=== PATIENT | female | born 1930 | race Caucasian/White ===

== ENCOUNTER 2016-09-15 08:50 | Outpatient (CLI) | payer MEDICARE, OTHER | END 2016-09-15 08:51 | disposition home or self-care (01) | DX: I10 Essential (primary) hypertension (principal); E78.5 Hyperlipidemia, unspecified; E03.9 Hypothyroidism, unspecified ==

== ENCOUNTER 2016-12-29 14:38 | Outpatient (CLI) | payer MEDICARE, OTHER | END 2016-12-29 23:59 | disposition home or self-care (01) | DX: M25.50 Pain in unspecified joint (principal) ==

== ENCOUNTER 2017-05-10 10:23 | Outpatient (CLI) | payer MEDICARE, OTHER ==
[2017-05-10 13:05] LABS: BASOPHILS % (AUTO) 0.6 %; EOSINOPHILS # (AUTO) 0.1 10^3/uL (0.0-0.7); EOSINOPHILS % (AUTO) 1.8 %; HCT - HEMATOCRIT 37.2 % (37.0-47.0); HGB - HEMOGLOBIN 12.4 g/dL (12.0-16.0); LYMPHOCYTES # (AUTO) 1.5 10^3/uL (1.5-3.5); LYMPHOCYTES % (AUTO) 29.9 %; MEAN CORPUSCULAR HGB CONC 33.4 g/dL (32.0-36.0); MEAN CORPUSCULAR VOLUME 86.7 fL (81.0-99.0); MEAN PLATELET VOLUME 9.9 fL (7.9-10.8); MONOCYTES # (AUTO) 0.4 10^3/uL (0.0-1.0); MONOCYTES % (AUTO) 7.5 %; NEUTROPHILS % (AUTO) 60.2 %; RED BLOOD COUNT 4.29 10^6/uL (4.20-5.40); RED CELL DISTRIBUTION WIDTH 13.5 % (12.0-15.0)
[2017-05-10 13:43] LABS: ALBUMIN/GLOBULIN RATIO 1.5 (1.0-2.2); BILIRUBIN,TOTAL 0.5 mg/dL (0.2-1.0); CALCIUM 9.3 mg/dL (8.5-10.3); CREATININE 0.6 mg/dL (0.4-1.0); POTASSIUM 3.9 mmol/L (3.5-5.0); TOTAL PROTEIN 6.7 g/dL (6.7-8.2)
== END 2017-05-10 10:24 | disposition home or self-care (01) ==
LOC: LAB.WCP 10:23
PROVIDERS: ATTEND Family Medicine
DX: R07.9 Chest pain, unspecified (principal)
CPT/HCPCS: 36415; 80053; 84484; 85025

== ENCOUNTER 2017-05-10 13:18 | Outpatient (CLI) | payer MEDICARE, OTHER ==
--- NOTE | 2017-05-10 14:12 | XRAY Report ---
TWO VIEW CHEST: 05/10/2017 CLINICAL INDICATION: Chest pain. FINDINGS: Frontal and lateral views of the chest are compared to previous films of 05/29/2016. The cardiac silhouette is within normal limits. Minimal left basilar scarring is stable. No new conso lidation, effusion, or pneumothorax is present. Left shoulder replacement appears stable. IMPRESSION: STABLE MINIMAL LEFT BASILAR SCARRING. NO EVIDENCE OF ACUTE CARDIOPULMONARY DISEASE. JOB #: [id number] EXT JOB #:[id number]
== END 2017-05-10 13:19 | disposition home or self-care (01) ==
LOC: DI 13:18
PROVIDERS: ATTEND Family Medicine
DX: R07.9 Chest pain, unspecified (principal)
CPT/HCPCS: 36415; 71020; 80053; 84484; 85025

== ENCOUNTER 2017-05-20 10:50 | Outpatient (CLI) | payer MEDICARE, OTHER ==
--- NOTE | 2017-05-20 14:52 | CARDIAC PROCEDURE NOTE ---
DATE OF SERVICE: 05/20/2017 00:00:00 PRIMARY CARE PHYSICIAN: Vick Mckeon DO PROCEDURE: Pharmacological stress test. PROCEDURE SYMPTOMS: Chest pain. CARDIAC RISK FACTORS: Include age, hypertension and hyperlipidemia. CLINICAL HISTORY: An 87-year-old female without known coronary artery disease. The patient did not take her antihypertensive medication this morning. INITIAL RESTING VITAL SIGNS: Blood pressure 192/86, heart rate 59, height 61 inches, weight 130 pounds, BMI 24.2. PROCEDURE AND FINDINGS: The patient's identity and date verified. Consent signed. Safety stop. Pharmacologic stress testing was performed with Lexiscan at a dose of 0.4 mg over 10 seconds. Maximal blood pressure was 184/86 with a heart rate of 89 beats per minute. The systolic blood pressure lowered to 170 in response to Lexiscan. The patient had symptoms of brief chest pain, dyspnea and headache, that resolved spontaneously. The resting ECG demonstrated normal sinus rhythm with repolarization abnormality. There was no ST segment depression and no ectopy. FINAL IMPRESSION 1. No electrocardiographic signs of ischemia, test incomplete, awaiting myocardial perfusion scan report. 2. Nondiagnostic stress test clinically for angina. 3. No ectopy. JOB #: [id number] EXT JOB #:[id number] [email or web address]
--- NOTE | 2017-05-20 15:49 | Nuclear Medicine Prelim Report ---
Exam: NM Myocardial Perfusion STR/RST IMPRESSION: 1. No scintigraphic evidence of inducible ischemia or infarct. 2. Left ventricular ejection fraction estimated at 79%. [facility] SITE ID: [id number]
--- NOTE | 2017-05-20 15:52 | Nuclear Medicine Report ---
EXAM: NUCLEAR MEDICINE MYOCARDIAL PERFUSION STRESS AND REST EXAM DATE: 05/20/2017 11:55 AM. CLINICAL HISTORY: CHEST PAIN. COMPARISON: None. TECHNIQUE: Patient given 7.4 mCi technetium 99m sestamibi IV for the rest portion of the study. Non-g ated cardiac SPECT scintigraphy performed with multiplanar reformats. After this, patient given 0.4 mg Lexiscan for pharmacologic stress. Given 31.4 mCi technetium 99m sestamibi IV. Cardiac gated SPECT scintigraphy performed with multiplan ar reformats, wall motion analysis, and left ventricular ejection fraction estimation. FINDINGS: There is uniform perfusion activity in the left ventricular myocardium on both stress and rest. No fi xed or reversible stress-related perfusion defects. Wall motion is uniform. Left ventricular ejection fraction estimated at 79%. IMPRESSION: 1. No scintigraphic evidence of inducible ischemia or infarct. 2. Left ventricular ejection fraction estimated at 79%. [facility] Referring Provider Line: [phone] SITE ID: [id number]
[2017-05-26 15:59] VITALS: BP 192/86
== END 2017-05-20 10:51 | disposition home or self-care (01) ==
LOC: DI 10:50
PROVIDERS: ATTEND Family Medicine
DX: R07.9 Chest pain, unspecified (principal)
CPT/HCPCS: 78452; 93017; A9500

== ENCOUNTER 2017-10-21 13:05 | Outpatient (CLI) | payer MEDICARE, OTHER ==
[2017-10-21 19:19] LABS: BILIRUBIN,URINE NEGATIVE (NEGATIVE); GLUCOSE, URINE (UA) NEGATIVE (NEGATIVE); KETONES,URINE (UA) NEGATIVE (NEGATIVE); LEUKOCYTE ESTERASE, URINE LARGE (NEGATIVE); NITRITE,URINE NEGATIVE (NEGATIVE); OCCULT BLOOD,URINE SMALL (NEGATIVE); PH,URINE 6.5 PH (5.0-7.5); PROTEIN,URINE NEGATIVE (NEGATIVE); UROBILINOGEN,URINE 0.2 (NORMAL) E.U./dL (NORMAL)
[2017-10-21 19:33] LABS: CLARITY,URINE HAZY (CLEAR); WBC CLUMPS,URINE PRESENT
[2017-10-21 19:34] LABS: BACTERIA,URINE Few /HPF (None Seen); SQUAMOUS EPITHELIAL CELL,UR MOD Squamous (<= Few)
== END 2017-10-21 13:06 | disposition home or self-care (01) ==
LOC: LAB.WCP 13:05
PROVIDERS: ATTEND Family Medicine
DX: R31.9 Hematuria, unspecified (principal)
CPT/HCPCS: 81001; 87086

== ENCOUNTER 2017-11-16 10:30 | Outpatient (CLI) | payer MEDICARE, OTHER | END 2017-11-16 10:31 | disposition home or self-care (01) | LOC: LAB.WCP 10:30 | PROVIDERS: ATTEND Family Medicine | DX: S81.822A Laceration with foreign body, left lower leg, initial encounter (principal) | CPT/HCPCS: 87070; 87205 ==

== ENCOUNTER 2018-11-04 10:44 | Outpatient (CLI) | payer MEDICARE, OTHER ==
--- NOTE | 2018-11-04 12:57 | XRAY Report ---
Reason: CHEST PX,ATYPICAL Procedure Date: 11/04/2018 Accession Number: [id number] / [id number] Procedure: WCP - Chest 2 View X-Ray CPT Code: 65675 FULL RESULT: EXAM: CHEST RADIOGRAPHY EXAM DATE: 11/04/2018 10:58 AM. CLINICAL HISTORY: Chest pain, atypical. COMPARISON: CHEST 2 VIEW PA/LAT 05/10/2017 1:38 PM. TECHNIQUE: 2 views. FINDINGS: Lungs/Pleura: Linear opacities in the retrocardiac region are mildly more prominent, likely subsegmental atelectasis or scarring. No pleural effusion. No pneumothorax. Normal volumes. Mediastinum: Stable cardiomediastinal silhouette including calcifications of the aortic arch. Central pulmonary arteries are prominent. Other: None. IMPRESSION: Suspect scarring or subsegmental atelectasis in the lingula. [facility]
== END 2018-11-04 10:45 | disposition home or self-care (01) ==
LOC: DI.WCP 10:44
PROVIDERS: ATTEND Family Medicine
DX: R07.89 Other chest pain (principal)
CPT/HCPCS: 71046

== ENCOUNTER 2018-12-14 08:00 | Outpatient (CLI) | payer MEDICARE, OTHER ==
[2018-12-14 13:10] LABS: BASOPHILS # (AUTO) 0.1 10^3/uL (0.0-0.1); BASOPHILS % (AUTO) 1.1 %; EOSINOPHILS # (AUTO) 0.1 10^3/uL (0.0-0.7); EOSINOPHILS % (AUTO) 1.3 %; HGB - HEMOGLOBIN 12.7 g/dL (12.0-16.0); LYMPHOCYTES # (AUTO) 1.9 10^3/uL (1.5-3.5); LYMPHOCYTES % (AUTO) 29.7 %; MEAN CORPUSCULAR HEMOGLOBIN 27.9 pg (27.0-31.0); MEAN CORPUSCULAR HGB CONC 32.8 g/dL (32.0-36.0); MEAN CORPUSCULAR VOLUME 85.2 fL (81.0-99.0); MEAN PLATELET VOLUME 9.7 fL (7.9-10.8); MONOCYTES # (AUTO) 0.5 10^3/uL (0.0-1.0); MONOCYTES % (AUTO) 7.5 %; NEUTROPHILS # (AUTO) 3.8 10^3/uL (1.5-6.6); NEUTROPHILS % (AUTO) 60.4 %; PLT - PLATELET COUNT 252 10^3/uL (130-450); RED BLOOD COUNT 4.53 10^6/uL (4.20-5.40); RED CELL DISTRIBUTION WIDTH 13.8 % (12.0-15.0); WHITE BLOOD COUNT 6.4 x10^3/uL (4.8-10.8)
[2018-12-14 13:44] LABS: ALBUMIN 4.1 g/dL (3.2-5.5); ALBUMIN/GLOBULIN RATIO 1.4 (1.0-2.2); ALKALINE PHOSPHATASE 86 IU/L (42-121); ALT ALANINE AMINOTRANSFERASE 27 IU/L (10-60); AST ASPARTATE AMINOTRANSFERASE 27 IU/L (10-42); BILIRUBIN,TOTAL 0.7 mg/dL (0.2-1.0); BUN - BLOOD UREA NITROGEN 21 mg/dL (6-20); CALCIUM 9.6 mg/dL (8.5-10.3); CARBON DIOXIDE - CO2 29 mmol/L (21-32); CHLORIDE 99 mmol/L (101-111); CHOL/HDL RATIO 2.9 (<4.4); CHOLESTEROL 191 mg/dL; CREATININE 0.6 mg/dL (0.4-1.0); GFR - MDRD 94 (>89); GLUCOSE 110 mg/dL (70-100); HDL CHOLESTEROL 65 mg/dL; LDL CHOLESTEROL,CALCULATED 102 mg/dL; LDL/HDL RATIO 1.6 (<4.4); SODIUM 139 mmol/L (135-145); VLDL CHOLESTEROL 24 mg/dL
[2018-12-14 14:16] LABS: FREE T4 (FREE THYROXINE) 1.14 ng/dL (0.58-1.64)
== END 2018-12-14 08:01 | disposition home or self-care (01) ==
LOC: LAB.WCP 08:00
PROVIDERS: ATTEND Family Medicine
DX: E78.5 Hyperlipidemia, unspecified (principal); I10 Essential (primary) hypertension; E03.9 Hypothyroidism, unspecified
CPT/HCPCS: 36415; 80053; 80061; 83721; 84439; 84443; 85025

== ENCOUNTER 2019-02-15 09:28 | Outpatient (CLI) | payer MEDICARE, OTHER ==
[2019-02-15 12:47] LABS: BASOPHILS % (AUTO) 0.7 %; EOSINOPHILS # (AUTO) 0.1 10^3/uL (0.0-0.7); EOSINOPHILS % (AUTO) 2.5 %; HGB - HEMOGLOBIN 11.5 g/dL (12.0-16.0); LYMPHOCYTES # (AUTO) 1.7 10^3/uL (1.5-3.5); LYMPHOCYTES % (AUTO) 34.2 %; MEAN CORPUSCULAR HEMOGLOBIN 27.6 pg (27.0-31.0); MEAN CORPUSCULAR HGB CONC 32.6 g/dL (32.0-36.0); MEAN CORPUSCULAR VOLUME 84.8 fL (81.0-99.0); MEAN PLATELET VOLUME 9.4 fL (7.9-10.8); MONOCYTES # (AUTO) 0.5 10^3/uL (0.0-1.0); MONOCYTES % (AUTO) 10.8 %; NEUTROPHILS # (AUTO) 2.5 10^3/uL (1.5-6.6); NEUTROPHILS % (AUTO) 51.8 %; PLT - PLATELET COUNT 252 10^3/uL (130-450); RED BLOOD COUNT 4.17 10^6/uL (4.20-5.40); RED CELL DISTRIBUTION WIDTH 13.9 % (12.0-15.0); WHITE BLOOD COUNT 4.9 x10^3/uL (4.8-10.8)
[2019-02-15 12:58] LABS: ALBUMIN 3.8 g/dL (3.2-5.5); ALBUMIN/GLOBULIN RATIO 1.2 (1.0-2.2); BILIRUBIN,TOTAL 0.4 mg/dL (0.2-1.0); CALCIUM 9.3 mg/dL (8.5-10.3); CREATININE 0.6 mg/dL (0.4-1.0); TOTAL PROTEIN 6.9 g/dL (6.7-8.2)
== END 2019-02-15 09:29 | disposition home or self-care (01) ==
LOC: LAB.WCP 09:28
PROVIDERS: ATTEND Family Medicine
DX: R60.9 Edema, unspecified (principal); E03.9 Hypothyroidism, unspecified; I10 Essential (primary) hypertension; E78.5 Hyperlipidemia, unspecified
CPT/HCPCS: 36415; 80053; 84443; 85025

== ENCOUNTER 2019-02-24 08:00 | Outpatient (CLI) | payer MEDICARE, OTHER ==
[2019-02-24 18:23] LABS: BILIRUBIN,URINE NEGATIVE (NEGATIVE); GLUCOSE, URINE (UA) NEGATIVE (NEGATIVE); KETONES,URINE (UA) NEGATIVE (NEGATIVE); LEUKOCYTE ESTERASE, URINE LARGE (NEGATIVE); NITRITE,URINE NEGATIVE (NEGATIVE); OCCULT BLOOD,URINE LARGE (NEGATIVE); PROTEIN,URINE TRACE mg/dL (NEGATIVE); UROBILINOGEN,URINE 0.2 (NORMAL) E.U./dL (NORMAL)
[2019-02-24 18:52] LABS: BACTERIA,URINE None Seen /HPF (None Seen); CLARITY,URINE HAZY (CLEAR); SQUAMOUS EPITHELIAL CELL,UR RARE Squamous (<= Few)
== END 2019-02-24 23:59 | disposition home or self-care (01) ==
LOC: LAB.R 08:00
PROVIDERS: ATTEND Family Medicine
DX: R31.9 Hematuria, unspecified (principal)
CPT/HCPCS: 81001; 81003; 87086

== ENCOUNTER 2019-04-04 14:15 | Outpatient (CLI) | payer MEDICARE, OTHER ==
[2019-04-04 18:44] LABS: BASOPHILS % (AUTO) 0.4 %; EOSINOPHILS % (AUTO) 0.2 %; HGB - HEMOGLOBIN 11.8 g/dL (12.0-16.0); LYMPHOCYTES # (AUTO) 2.1 10^3/uL (1.5-3.5); LYMPHOCYTES % (AUTO) 19.3 %; MEAN CORPUSCULAR HEMOGLOBIN 27.6 pg (27.0-31.0); MEAN CORPUSCULAR HGB CONC 30.9 g/dL (32.0-36.0); MEAN CORPUSCULAR VOLUME 89.5 fL (81.0-99.0); MEAN PLATELET VOLUME 11.9 fL (7.9-10.8); MONOCYTES # (AUTO) 0.9 10^3/uL (0.0-1.0); MONOCYTES % (AUTO) 7.9 %; NEUTROPHILS # (AUTO) 7.7 10^3/uL (1.5-6.6); NEUTROPHILS % (AUTO) 71.6 %; PLT - PLATELET COUNT 281 10^3/uL (130-450); RED BLOOD COUNT 4.27 10^6/uL (4.20-5.40); RED CELL DISTRIBUTION WIDTH 15.2 % (12.0-15.0); WHITE BLOOD COUNT 10.8 x10^3/uL (4.8-10.8)
== END 2019-04-04 23:59 | disposition home or self-care (01) ==
LOC: LAB.WCP 14:15
PROVIDERS: ATTEND Physician Assistant Medical
DX: J06.9 Acute upper respiratory infection, unspecified (principal)
CPT/HCPCS: 36415; 85025

== ENCOUNTER 2019-04-17 08:44 | Outpatient (CLI) | payer MEDICARE, OTHER ==
[2019-04-17] MEDS ORDERED: GADOBUTROL 10 MMOL/10 ML VIAL IVP ONE (10:13)
[2019-04-17] MEDS ORDERED: GADOBUTROL 10 MMOL/10 ML VIAL ONE (11:04)
--- NOTE | 2019-04-17 14:29 | MRI Report ---
Reason: SUDDEN HEARING LOSS, BILATERAL Procedure Date: 04/17/2019 Accession Number: [id number] / [id number] Procedure: MRI - Brain W/WO CPT Code: FULL RESULT: EXAM: MRI BRAIN AND INTERNAL AUDITORY CANAL (IAC),WITHOUT AND WITH CONTRAST. EXAM DATE: 04/17/2019 10:43 AM. CLINICAL HISTORY: 89-year-old presenting with bilateral sudden onset hearing loss. Evaluate for intracranial pathology. COMPARISON: None. TECHNIQUE: The following sequences of the brain were obtained. Axial: MPR T1 weighted 3D TFE postcontrast. Sagittal: T1 precontrast, MPR T1 weighted 3D TFE postcontrast. Other: Coronal MPR postcontrast reformatted on an independent workstation. The following sequences of the posterior fossa and internal auditory canals was obtained. Axial: T2 FFE 3D, T1 fat-sat postcontrast 3 mm slices. Other: Sagittal oblique reformats. IV Contrast: 6 cc Gadavist. FINDINGS: Brain Volume: Normal for age. Parenchyma/Dura: No acute parenchymal hemorrhage, mass, or midline shift.There is mild to moderate bilateral areas of T1 signal hypointensity seen that likely represents sequela of chronic small vessel disease. No abnormal enhancement. Internal Auditory Canals (IACs): Normal. No cranial nerve lesion or inflammatory process identified. The inner ear structure are symmetric and unremarkable. Ventricles/Cisterns: No hydrocephalus. No abnormal extra-axial fluid collection or hemorrhage. Orbits: Changes of bilateral lens replacement. Sella Turcica: The pituitary gland, cavernous sinuses, suprasellar cistern and optic chiasm are unremarkable. Vasculature: Normal signal flow void is seen in the major arterial structures at the skull base. The dural sinuses are patent and enhance normally. Sinuses: Minimal mucosal thickening of maxillary sinuses. Moderate bilateral mastoid effusions. Bones: No focal pathologic appearing marrow signal changes. Other: None. IMPRESSION: 1. The visualized posterior fossa and internal auditory canals appear clear of significant mass or masslike enhancement seen. 2. No acute intracranial hemorrhage, mass, hydrocephalus, or midline shift. No abnormal postcontrast enhancement. [facility]
== END 2019-04-17 08:45 | disposition home or self-care (01) ==
LOC: DI 08:44
PROVIDERS: ATTEND Family Medicine
DX: H91.23 Sudden idiopathic hearing loss, bilateral (principal)
CPT/HCPCS: 70553; A9585

== ENCOUNTER 2019-07-11 10:20 | Outpatient (CLI) | payer MEDICARE, OTHER ==
--- NOTE | 2019-07-11 12:41 | XRAY Report ---
Reason: GERD, DYSPHAGIA Procedure Date: 07/11/2019 Accession Number: [id number] / [id number] Procedure: FL - Esophogram CPT Code: FULL RESULT: EXAM: BARIUM ESOPHAGRAM EXAM DATE: 07/11/2019 11:35 AM. CLINICAL HISTORY: GERD, DYSPHAGIA. Persistent cough. COMPARISONS: CHEST 2 VIEW 04/04/2019 2:21 PM. TECHNIQUE: Routine double contrast esophagram. Fluoroscopy Time: 4 minutes 52 seconds. Number of Images: 17. FINDINGS: Swallowing Mechanism: No tracheal aspiration or penetration. Esophageal Motility: Presbyesophagus with absent peristaltic stripping wave. Mucosa: No ulcerations or masses. Gastroesophageal Junction: Small hiatal hernia with intermittent reflux to the level of the clavicles. Other: A 13 mm barium tablet passes easily into the stomach. IMPRESSION: 1. Presbyesophagus 2. Small hiatal hernia with intermittent reflux to the level of the clavicles. [facility]
== END 2019-07-11 10:21 | disposition home or self-care (01) ==
LOC: DI 10:20
PROVIDERS: ATTEND Otolaryngology
DX: K22.8 Other specified diseases of esophagus (principal); K44.9 Diaphragmatic hernia without obstruction or gangrene; K21.9 Gastro-esophageal reflux disease without esophagitis
CPT/HCPCS: 74220

== ENCOUNTER 2019-07-18 12:45 | Outpatient (CLI) | payer MEDICARE, OTHER ==
--- NOTE | 2019-07-18 15:18 | XRAY Report ---
Reason: DYSPHAGIA Procedure Date: 07/18/2019 Accession Number: [id number] / [id number] Procedure: FL - Modified Barium Swallow W/SP CPT Code: Final Report FULL RESULT: EXAM: MODIFIED BARIUM SWALLOW EXAM DATE: 07/18/2019 02:04 PM. CLINICAL HISTORY: Dysphagia. COMPARISON: ESOPHOGRAM 07/11/2019 10:55 AM. TECHNIQUE: Under the direction of speech pathology, patient swallowed various consistencies of barium under lateral fluoroscopic observation of the neck. Fluoroscopy Time: 0.36 minutes. Number of Images: 32. FINDINGS: Swallowing Mechanism: Normal oral phase and swallowing reflex. Airway Protection: Normal epiglottic motion. No episodes of tracheal penetration or aspiration with all consistencies of barium. Pharynx: Normal. No significant vallecular or piriform sinus contrast pooling. Other: None. IMPRESSION: Normal modified barium swallow. No aspiration identified. [facility]
== END 2019-07-18 12:46 | disposition home or self-care (01) ==
LOC: DI 12:45
PROVIDERS: ATTEND Otolaryngology
DX: K21.9 Gastro-esophageal reflux disease without esophagitis (principal); R13.19 Other dysphagia
CPT/HCPCS: 74230

== ENCOUNTER 2019-07-24 08:00 | Outpatient (CLI) | payer MEDICARE, OTHER | END 2019-07-24 23:59 | disposition home or self-care (01) | LOC: LAB.WCP 08:00 | PROVIDERS: ATTEND Family Medicine | DX: M25.50 Pain in unspecified joint (principal) | CPT/HCPCS: 36415; 85651; 86140 ==

== ENCOUNTER 2019-09-01 08:47 | Outpatient (CLI) | payer MEDICARE, OTHER ==
--- NOTE | 2019-09-01 11:29 | XRAY Report ---
Reason: BILATERAL HIP PAIN Procedure Date: 09/01/2019 Accession Number: [id number] / [id number] Procedure: WCP - Pelvis 1 View CPT Code: Final Report FULL RESULT: EXAM: PELVIS RADIOGRAPHY EXAM DATE: 09/01/2019 08:47 AM HISTORY: BILATERAL HIP PAIN. COMPARISON: NONE TECHNIQUE: Single frontal view FINDINGS: The pelvic ring is grossly intact. There may be some mild bilateral SI joint degenerative change. The right hip has slight joint space narrowing in small to moderate femoral head osteophyte formation indicative of mild osteoarthritis. The left hip has mild joint space narrowing without additional significant abnormality. The lower lumbar spine appears to have some degenerative disk disease and facet arthritis. IMPRESSION: Mild bilateral hip osteoarthritis, greater on the right. Possible Mild bilateral SI joint degenerative arthritis. Joint degenerative arthritis. Partially visualized lower lumbar spondylosis. [facility]
== END 2019-09-01 23:59 | disposition home or self-care (01) ==
LOC: DI.WCP 08:47
PROVIDERS: ATTEND Family Medicine
DX: M16.0 Bilateral primary osteoarthritis of hip (principal); M47.818 Spondylosis without myelopathy or radiculopathy, sacral and sacrococcygeal region; M47.816 Spondylosis without myelopathy or radiculopathy, lumbar region
CPT/HCPCS: 72170

== ENCOUNTER 2019-10-24 09:21 | Outpatient (CLI) | payer MEDICARE, OTHER ==
[2019-10-24 12:05] LABS: BASOPHILS % (AUTO) 0.5 %; EOSINOPHILS # (AUTO) 0.1 10^3/uL (0.0-0.7); EOSINOPHILS % (AUTO) 1.8 %; HGB - HEMOGLOBIN 13.5 g/dL (12.0-16.0); LYMPHOCYTES # (AUTO) 1.6 10^3/uL (1.5-3.5); LYMPHOCYTES % (AUTO) 28.2 %; MEAN CORPUSCULAR HEMOGLOBIN 29.7 pg (27.0-31.0); MEAN CORPUSCULAR HGB CONC 32.8 g/dL (32.0-36.0); MEAN CORPUSCULAR VOLUME 90.5 fL (81.0-99.0); MONOCYTES # (AUTO) 0.4 10^3/uL (0.0-1.0); MONOCYTES % (AUTO) 7.6 %; NEUTROPHILS # (AUTO) 3.5 10^3/uL (1.5-6.6); NEUTROPHILS % (AUTO) 61.4 %; PLT - PLATELET COUNT 267 10^3/uL (130-450); RED BLOOD COUNT 4.55 10^6/uL (4.20-5.40); RED CELL DISTRIBUTION WIDTH 13.2 % (12.0-15.0); WHITE BLOOD COUNT 5.7 x10^3/uL (4.8-10.8)
[2019-10-24 12:27] LABS: ALBUMIN 4.2 g/dL (3.2-5.5); ALBUMIN/GLOBULIN RATIO 1.4 (1.0-2.2); ALKALINE PHOSPHATASE 69 IU/L (42-121); ALT ALANINE AMINOTRANSFERASE 19 IU/L (10-60); AST ASPARTATE AMINOTRANSFERASE 21 IU/L (10-42); BILIRUBIN,TOTAL 0.8 mg/dL (0.2-1.0); BUN - BLOOD UREA NITROGEN 16 mg/dL (6-20); CALCIUM 9.6 mg/dL (8.5-10.3); CARBON DIOXIDE - CO2 30 mmol/L (21-32); CHLORIDE 100 mmol/L (101-111); CHOL/HDL RATIO 3.8 (<4.4); CHOLESTEROL 230 mg/dL; CREATININE 0.6 mg/dL (0.4-1.0); GFR - MDRD 94 (>89); GLUCOSE 70 mg/dL (70-100); HDL CHOLESTEROL 60 mg/dL; LDL CHOLESTEROL,CALCULATED 130 mg/dL; LDL/HDL RATIO 2.2 (<4.4); SODIUM 138 mmol/L (135-145); TOTAL PROTEIN 7.2 g/dL (6.7-8.2); VLDL CHOLESTEROL 40 mg/dL
[2019-10-24 14:17] LABS: FREE T4 (FREE THYROXINE) 0.95 ng/dL (0.58-1.64)
== END 2019-10-24 23:59 | disposition home or self-care (01) ==
LOC: LAB.WCP 09:21
PROVIDERS: ATTEND Family Medicine
DX: I10 Essential (primary) hypertension (principal); E78.5 Hyperlipidemia, unspecified; E03.9 Hypothyroidism, unspecified
CPT/HCPCS: 36415; 80053; 80061; 83721; 84439; 84443; 85025